=== PATIENT | female | born 1990 | race Caucasian/White ===

== ENCOUNTER 2023-02-04 10:19 | Emergency (ER) | payer OTHER ==
[~2023-02-04] VITALS: Ht 162.6 cm; Wt 54.4 kg
[2023-02-04 10:39] LABS: *URINE HCG, QUAL NEGATIVE (NEGATIVE)
[2023-02-04] MEDS ORDERED: ALBU6.7H9 INH (12:09)
[2023-02-04] MEDS ORDERED: BENZ-13 PO (12:09)
[2023-02-04 12:14] VITALS: BP 122/70; TEMP 98; O2SAT 99
== END 2023-02-04 12:15 | disposition home or self-care (01) ==
LOC: ER 10:19
DX: J02.9 Acute pharyngitis, unspecified (principal); R07.89 Other chest pain; Z20.822 Contact with and (suspected) exposure to COVID-19
CPT/HCPCS: 71046; 84703; A4663